=== PATIENT | female | born 1945 | race Caucasian/White ===

== ENCOUNTER 2016-11-26 19:41 | Inpatient (IN) | payer MEDICARE, OTHER ==
--- NOTE | ~2016-11-26 | DS ---
Unit #: [id number] #: [id number] Patient: RODNEY LUEVANO [id number] [address] [address] [id number] MR#: [id number] NAME: RODNEY LUEVANO. ROOM: 218 Age: 71 Sex: F Admission Date: 11/26/2016 : 1945 Discharge Date: 11/28/2016 Attending Physician: Alize Bailey M.D. DISCHARGE SUMMARY PRINCIPAL DIAGNOSES 1. Sepsis secondary to Escherichia coli urinary tract infection. 2. Toxic metabolic encephalopathy secondary to number 1, now resolved. 3. Diarrhea with pending clostridium difficile, resolved after Flagyl therapy. 4. Chronic dysphagia. 5. Diabetes mellitus type 2, insulin requiring, with hyperglycemia. 6. Iron deficiency anemia. Discharge hemoglobin 10. 7. Hypertension. 8. Thrush. 9. Dementia with behavioral disturbance. 10. Schizoaffective disorder. 11. Severe protein malnutrition. 12. Morbid obesity. 13. Recent partial hemicolectomy secondary to adenocarcinoma of the colon. 14. Hypothyroidism. 15. Hyperlipidemia. 16. Chronic obstructive pulmonary disease. CONSULTANTS None. DIAGNOSTIC STUDIES IMAGING: Chest x-ray on November 26, 2016 with bibasilar atelectasis. CLINICAL HISTORY AND HOSPITAL COURSE Ms. Luevano is a 71-year-old female, a long-term senior care resident who presented to the emergency department with increasing confusion. In the emergency department she was found to have urinary tract infection. She was given antibiotics in the emergency department with some fluids, and mental status improved. She was admitted for further evaluation. The patient was started on empiric cefepime in addition to a single dose of vancomycin. Urine culture has returned with E-coli. She has no clinical signs or symptoms of pyelonephritis; thus, I suspect this represents urinary tract infection. I am going to treat with a 1-week course of Macrobid. The patient's associated delirium has resolved. The patient was also complaining of diarrhea. C. diff. has been sent, and she has been started on Flagyl. I am not going to send the patient on Flagyl unless C. diff. becomes positive. I will contact the facility if it becomes positive. Unit #: [id number] #: [id number] Patient: RODNEY LUEVANO The patient's other chronic conditions all remained at baseline. I think she can be safely discharged back to the nursing facility today. DISCHARGE CONDITION Stable. DISCHARGE STATUS Discharge back to senior care. DISCHARGE MEDICATIONS 1. Macrobid 100 mg p.o. b.i.d. for 6 days. 2. Flagyl 500 mg p.o. t.i.d. for 13 days. 3. Tylenol 500 mg p.o. q.4 hours p.r.n. pain. 4. Depakote 1,000 mg b.i.d. 5. Nystatin 5 mg p.o. q.i.d. for 6 days. 6. Claritin 10 mg daily. 7. Atorvastatin 40 mg at bedtime. 8. Questran 4-gram packet daily. 9. Abilify 10 mg daily. 10. Xanax 0.5 mg p.o. q.6 hours p.r.n. anxiety. 11. Namenda 10 mg daily. 12. Aricept 10 mg at bedtime. 13. Lasix 40 mg every other day. 14. NovoLog 22 units with breakfast, 29 units with lunch and 29 units with dinner. 15. Levemir 40 units subcutaneously b.i.d. 16. Ferrous sulfate 325 mg b.i.d. 17. [place] 5/325 mg 2 tablets q.4 hours p.r.n. pain. 18. Pantoprazole 40 mg daily. 19. Potassium chloride 20 mEq p.o. every other day with Lasix dosing. 20. Levothyroxine 225 mcg p.o. daily. 21. Vitamin C 250 mg daily. DISCHARGE INSTRUCTIONS Patient was instructed to follow a constant carb, heart healthy diet. She will continue Accu-Cheks a.c. and h.s. at the nursing facility. She can increase her activity as tolerated. She would benefit from sleep apnea study, as well. FOLLOW-UP 1. Patient will follow up with medical billing assistant at facility upon return. 2. Again, I will contact the nursing facility if the patient is C. diff. positive. Dictated by... Alize Bailey M.D. SEJAL/lala TD: 11/28/2016 11:17 JOB #: [id number] Unit #: [id number] #: [id number] Patient: RODNEY LUEVANO L DISCHARGE SUMMARY Page 1 of 1 X Alize Bailey MD X DISCHARGE SUMMARY
--- NOTE | ~2016-11-26 | HP ---
Unit #: [id number] #: [id number] Patient: RODNEY LUEVANO [id number] [address] [address] [id number] I MR#: [id number] NAME: RODNEY LUEVANO. ROOM: 85671 Age: 71 Sex: F Admission Date: 11/26/2016 : 1945 Attending Physician: Ira Richardson M.D. HISTORY AND PHYSICAL CHIEF COMPLAINT Urinary tract infection, diarrhea, toxic-metabolic encephalopathy. HISTORY This 71-year-old female with dementia, schizoaffective disorder, diabetes, hypertension, was transferred from the [facility] for altered mental status. Patient was admitted to [facility] in September for moderately differentiated adenocarcinoma of the colon for which she underwent laparoscopic hemicolectomy. Apparently at the fpc she has since developed some recent diarrhea and they were concerned about her hydration status. She also had increasing confusion. She was sent to this emergency department where she is found to have a temperature of 100.5. She was bolused with IV fluids, given Tylenol along with p.o. potassium. Labs are notable for a white blood count of 33, and significant pyuria on urinalysis. The patient has had no stool in the ER. She is confused. PAST MEDICAL HISTORY 1. Schizoaffective disorder. 2. Dementia. 3. Descending colon mass. Positive for moderately differentiated adenocarcinoma for which the patient underwent laparoscopic partial hemicolectomy 10/[address] [facility]. 4. AODM. 5. Hyperlipidemia. 6. Hypothyroidism. 7. Dysphagia. 8. COPD. 9. Essential hypertension. 10. Status post permanent pacemaker insertion, details are unknown. ALLERGIES Penicillin. USP MEDICATIONS 1. Imodium p.r.n. 2. Cholestyramine 4 g p.o. 3. Potassium 20 mEq daily. 4. Synthroid 0.225 mg daily. 5. Claritin 10 mg daily. 6. Iron 325 mg daily. 7. NovoLog. Unit #: [id number] #: [id number] Patient: RODNEY LUEVANO 8. [place] 5 mg two tablets q.6 h. p.r.n. 9. Xanax 0.5 mg q.6 h. p.r.n. 10. Vitamin C. 11. Aricept 10 mg q.h.s. 12. Lipitor 40 mg daily. 13. Depakote 1000 mg b.i.d. 14. Levemir 60 units subcu b.i.d. 15. Benadryl 25 mg p.r.n. 16. Tylenol p.r.n. 17. Abilify 10 mg daily. 18. Namenda 10 mg daily. 19. Protonix 40 mg daily. 20. Lasix 40 mg daily. FAMILY HISTORY Unobtainable, patient is confused. SOCIAL HISTORY The patient lives at a nearby fpc. She currently does not smoke or drink alcohol. REVIEW OF SYSTEMS Difficult to obtain due to confusion. PHYSICAL EXAMINATION GENERAL: A 71-year-old, moderately obese confused female. VITAL SIGNS: Temperature 100.5. Pulse 101. Respirations 16. Blood pressure 117/58. O2 saturation is 93% on 2 L of oxygen. HEENT: Eyes ASTON. Pharynx: Patient has dry mucosa membranes and possibly thrush. NECK: Supple, without adenopathy or thyromegaly. CHEST: Clear. CARDIAC: Normal S1 and S2, with a fairly loud systolic murmur heard throughout the precordium. ABDOMEN: Bowel sounds are present. Mild generalized abdominal tenderness, without rebound or guarding. EXTREMITIES: With mild edema. Pedal pulses are diminished. NEUROLOGIC EXAM: Patient is awake, alert. She is oriented to the fact that she is in the hospital and to person but not to year. Her cranial nerves are intact. She has equal strength throughout but is quite weak on exam. DIAGNOSTIC STUDIES LABORATORY: Hematocrit is 33.6, white blood count is 33, normal platelet count, 23 bands noted. SMA-12: Potassium 3, glucose 227, calcium 7.9, with an albumin of 1.8, alkaline phosphatase 112. Urinalysis positive leukocyte esterase, nitrites and protein with 100 to 200 white cells, 4+ bacteria, no squamous cells seen. IMAGING: Chest x-ray likely a left atelectasis. CARDIOVASCULAR: EKG: Sinus tachycardia, rate 101. ASSESSMENT 1. Toxic-metabolic encephalopathy. 2. Pyelonephritis. 3. Diarrhea, status post laparoscopic hemicolectomy for colon cancer September [address] [facility]. 4. Permanent pacemaker insertion. Unit #: [id number] #: [id number] Patient: RODNEY LUEVANO 5. Schizoaffective disorder. 6. Dementia. 7. Adult-onset diabetes mellitus. 8. Hypertension. 9. Possible thrush. 10. Permanent pacemaker insertion. Details are unknown. 11. Hypothyroidism. PLANS 1. IV fluids 2. Hold Lasix and potassium for now. 3. Cefepime and one dose of vancomycin pending urine cultures. 4. Empiric Flagyl pending stool cultures. If stool cultures are negative will discontinue Flagyl. 5. Deep vein thrombosis prophylaxis. 6. Nystatin swish and swallow. 7. Speech evaluation. 8. Sliding scale insulin. Decrease Levemir for now. 9. Patient is a DNR. 10. If not improving will obtain a CT scan of the abdomen, etc. Dictated by Ira Richardson M.D. AML/cf TD: 11/27/2016 00:05 JOB #: [id number] HISTORY AND PHYSICAL Page 1 of 1 X Ira Richardson MD X HISTORY AND PHYSICAL
--- NOTE | ~2016-11-26 | EKG ---
PATIENT: RODNEY LUEVANO UNIT #: [id number] Ventricular Rate: 101 BPM Atrial Rate: 101 BPM P-R Interval: 176 ms QRS Duration: 88 ms Q-T Interval: 386 ms QTC Calculation(Bezet): 500 ms P [place]: 46 degrees Calculated R [place]: 28 degrees Calculated T [place]: 58 degrees Diagnosis Line: Sinus tachycardia Diagnosis Line: Possible Left atrial enlargement Diagnosis Line: Borderline ECG Diagnosis Line: No previous ECGs available Diagnosis Line: Confirmed by KATHLEEN VILLEGAS MD ([id number]) on 11/27/2016 Diagnosis Line: 11:23:53 PM INTERPRETING MD: BAKARI RAINES
--- NOTE | ~2016-11-26 | DS ---
Unit #: [id number] #: [id number] Patient: RODNEY LUEVANO [id number] [address] [address] [id number] MR#: [id number] NAME: RODNEY LUEVANO. ROOM: 218 Age: 71 Sex: F Admission Date: 11/26/2016 : 1945 Discharge Date: 11/28/2016 Attending Physician: Alize Bailey M.D. DISCHARGE SUMMARY ADDENDUM Following the patient's discharge, her C. diff. did return positive. I contacted [facility] and spoke with her nurse, and I have ordered Flagyl 500 mg p.o. t.i.d. for 14 days. Dictated by... Marianne Pineda/lala TD: 11/29/2016 07:45 JOB #: [id number] DISCHARGE SUMMARY Page 1 of 1 X Alize Bailey MD X DISCHARGE SUMMARY
--- NOTE | ~2016-11-26 | CR72 ---
[facility] A Service of [facility] RADIOLOGY TEXT RESULTS PATIENT: RODNEY LUEVANO LOCATION: [place] [address]- : [birth year] UNIT #: [id number] AGE: [address]: Alize Bailey MD SEX: F ORDER DR: [id number] [facility] [address] [place]. [place], [place] [address] [id number] I MR#: [id number] Acc #: [id number] NAME: RODNEY LUEVANO. : 1945 SEX: F STUDY DATE/TIME: 11/26/2016 20:17 UNIT: CEDOF ROOM: 98332 STUDY DESCRIPTION: CR Chest Single View Portable Attending Physician: Ira Richardson M.D. Ordering Physician: Ed Doctor [id number] [facility] MEDICAL IMAGING REPORT This report is preliminary unless electronic signature is present EXAM Single view chest INDICATIONS Shortness of air with activity. Dehydration. Altered mental status. FINDINGS A Single portable AP view of the chest compared 07/04/2016. Heart mediastinal contours are unchanged. The left chest wall pacemaker. Minimal linear airspace opacities in the left lung base is probably atelectasis. No pleural effusion. IMPRESSION Mild linear airspace opacities in the left lower lobe probably represents atelectasis, correlate for any evidence of mild or early pneumonia. Dictated by... Zenon Rodriguez M.D. THIS IS AN ELECTRONICALLY VERIFIED REPORT Zenon Rodriguez M.D. at 11/27/2016 2:31 PM JOE/ray TD: 11/27/2016 00:48 JOB #: [id number] MEDICAL IMAGING REPORT Page 1 of 1 COPY
[2016-11-26 19:57] LABS: BASOPHIL# 0.1 X10e3 (0-0.3); BASOPHIL% 0.3 % (0-2.5); EOSINOPHIL# 0.1 X10e3 (0-0.7); EOSINOPHIL% 0.3 % (0.0-7.0); HEMATOCRIT 33.6 % (35.0-45.0); HEMOGLOBIN 10.7 gm/dL (12.0-16.0); LYMPHOCYTE# 1.9 X10e3 (1.0-3.5); LYMPHOCYTE% 5.8 % (17.0-45.0); MEAN CELL VOLUME 78.2 FL (83-96); MEAN CORPUSCULAR HGB CONC 31.9 g/dL (30-36); MEAN PLATELET VOLUME 7.5 FL (6.5-11.5); MONOCYTE# 2.3 X10e3 (0-1.0); MONOCYTE% 7.1 % (3.0-12.0); NEUTROPHIL# 28.5 X10e3 (1.5-7.1); NEUTROPHIL% 86.5 % (40-75); PLATELET COUNT 365 X10e3 (140-420); RED CELL DISTRIBUTION WIDTH 17.2 % (11.0-15.5)
[2016-11-26 19:58] LABS: DIFF IND YES
[2016-11-26 20:16] LABS: URINE APPEARANCE CLOUDY; URINE BILIRUBIN NEG (NEG); URINE BLOOD TRACE (NEG); URINE COLOR YELLOW; URINE GLUCOSE NEG (NEG); URINE KETONE TRACE (NEG); URINE LEUKOCYTE ESTERASE 3+ (NEG); URINE NITRATE POS (NEG); URINE PROTEIN 1+ (NEG); URINE SPECIFIC GRAVITY 1.016 (1.003-1.035); URINE UROBILINOGEN 0.2 MG/DL (NEG)
[2016-11-26 20:19] LABS: CULTURE INDICATED? YES; URBCS1 AUWI 0-2 /[HPF] (0-2); URINE BACTERIA AUWI 4+ (NEGATIVE); URINE SQUAMOUS EPITHELIAL CELL NONE SEEN /[HPF]; UWBCS1 AUWI 100-200 (0-5)
[2016-11-26 20:19] LABS: ANISOCYTOSIS SL; HYPOCHROMIA SL; MICROCYTOSIS SL
[2016-11-26 20:20] LABS: PLATELET ESTIMATE NORMAL (NORMAL); SPHEROCYTE SL
[2016-11-26 20:39] LABS: URINE SOURCE CATH
[2016-11-26 20:42] LABS: ALBUMIN SERUM 1.8 g/dL (3.5-5.0); BILIRUBIN, DIRECT 0.1 mg/dL (0.0-0.2); BILIRUBIN,INDIRECT 0.3 mg/dL (0.0-0.9); BILIRUBIN,TOTAL 0.4 mg/dL (0.2-2.0); BUN/CREATININE RATIO 25.71; CALCIUM SERUM 7.9 mg/dL (8.4-10.2); CREATININE SERUM 0.7 mg/dL (0.6-1.4); GLOM FILT RATE Estimated 86.6 mL/min (>60); PROTEIN TOTAL SERUM 6.1 g/dL (6.0-8.3)
[2016-11-26] MEDS ORDERED: ANTI-DIARRHEAL2 M1 PO (22:43)
[2016-11-26] MEDS ORDERED: CHOLESTYRAMINE P4 GM PO (22:44)
[2016-11-26] MEDS ORDERED: K-DUR20 ME1 PO (22:45)
[2016-11-26] MEDS ORDERED: LEVOTHYROXINE25 MC1 PO (22:45)
[2016-11-26] MEDS ORDERED: LEVOXYL200 MC1 PO (22:46)
[2016-11-26] MEDS ORDERED: CLARITIN10 M2 PO (22:46)
[2016-11-26] MEDS ORDERED: IRON325 ( 652 PO (22:47)
[2016-11-26] MEDS ORDERED: NOVOLOG FL100 UNIT/1 SUBQ ×3 (22:48→22:55)
[2016-11-26] MEDS ORDERED: NORCO1 TAB 10/3 PO (22:49)
[2016-11-26] MEDS ORDERED: XANAX0.5 M1 PO (22:52)
[2016-11-26] MEDS ORDERED: VITAMIN C250 M1 PO (22:53)
[2016-11-26] MEDS ORDERED: DONEPEZIL HCL10 MG PO (22:53)
[2016-11-26] MEDS ORDERED: ATORVASTATIN CA40 MG PO (22:55)
[2016-11-26] MEDS ORDERED: LEVEMIR100 UNITS/ SUBQ (22:56)
[2016-11-26] MEDS ORDERED: DEPAKOTE PO (22:56)
[2016-11-26] MEDS ORDERED: BANOPHEN25 M1 PO (22:57)
[2016-11-26] MEDS ORDERED: MAPAP500 M1 PO (22:58)
[2016-11-26] MEDS ORDERED: ABILIFY10 MG PO (22:58)
[2016-11-26] MEDS ORDERED: FUROSEMIDE40 MG PO (22:59)
[2016-11-26] MEDS ORDERED: PANTOPRAZOLE SO40 MG PO (22:59)
[2016-11-26] MEDS ORDERED: MEMANTINE HCL10 MG PO (22:59)
[2016-11-27 06:12] LABS: BASOPHIL# 0.1 X10e3 (0-0.3); BASOPHIL% 0.5 % (0-2.5); DIFF IND NO; EOSINOPHIL# 0.2 X10e3 (0-0.7); EOSINOPHIL% 0.7 % (0.0-7.0); HEMATOCRIT 32.2 % (35.0-45.0); LYMPHOCYTE# 1.7 X10e3 (1.0-3.5); LYMPHOCYTE% 6.1 % (17.0-45.0); MEAN CELL VOLUME 79.2 FL (83-96); MEAN CORPUSCULAR HEMOGLOBIN 24.6 PG (28-34); MEAN PLATELET VOLUME 7.3 FL (6.5-11.5); MONOCYTE# 1.8 X10e3 (0-1.0); MONOCYTE% 6.5 % (3.0-12.0); NEUTROPHIL# 24.2 X10e3 (1.5-7.1); NEUTROPHIL% 86.2 % (40-75); PLATELET COUNT 337 X10e3 (140-420); RED BLOOD COUNT 4.06 X10e (3.90-5.30); RED CELL DISTRIBUTION WIDTH 17.7 % (11.0-15.5); WHITE BLOOD COUNT 28.1 X10e3 (4.0-10.5)
[2016-11-27 06:48] LABS: BUN/CREATININE RATIO 25.71; CALCIUM SERUM 7.5 mg/dL (8.4-10.2); CREATININE SERUM 0.7 mg/dL (0.6-1.4); GLOM FILT RATE Estimated 86.6 mL/min (>60); POTASSIUM 3.8 mmol/L (3.5-5.1)
[2016-11-27 13:08] LABS: IRON SERUM 6 ug/dL (28-170); TOTAL IRON BINDING CAPACITY 172 ug/dL (269-535); TRANSFERRIN 123 mg/dL (192-382); TRANSFERRIN SATURATION 3 % (20-50)
== END 2016-11-28 14:09 | DRG 871 ==
LOC: CED 19:41 → CEDOF 23:30 → C2A 11-27 09:51
PROVIDERS: Emergency Medicine; Internal Medicine
DX: A41.51 Sepsis due to Escherichia coli [E. coli] (principal); G92 Toxic encephalopathy; E43 Unspecified severe protein-calorie malnutrition; A04.7 Enterocolitis due to Clostridium difficile; N39.0 Urinary tract infection, site not specified; E11.9 Type 2 diabetes mellitus without complications; N12 Tubulo-interstitial nephritis, not specified as acute or chronic; B96.20 Unspecified Escherichia coli [E. coli] as the cause of diseases classified elsewhere; B37.0 Candidal stomatitis; F03.90 Unspecified dementia, unspecified severity, without behavioral disturbance, psychotic disturbance, mood disturbance, and anxiety; D50.9 Iron deficiency anemia, unspecified; F25.9 Schizoaffective disorder, unspecified; E78.5 Hyperlipidemia, unspecified; E03.9 Hypothyroidism, unspecified; J44.9 Chronic obstructive pulmonary disease, unspecified; Z95.0 Presence of cardiac pacemaker; Z88.0 Allergy status to penicillin; Z85.038 Personal history of other malignant neoplasm of large intestine; Z79.4 Long term (current) use of insulin; E66.01 Morbid (severe) obesity due to excess calories; Z68.31 Body mass index [BMI] 31.0-31.9, adult
CPT/HCPCS: 36415; 51701; 71010; 80048; 80076; 80164; 81003; 82140; 82607; 82947; 83540; 83550; 83605; 85025; 87040; 87045; 87086; 87088; 87186; 87427; 87493; 87899; 92610; 93005; 96361; 96365; 99285; G8996-GN; G8997-GN; J0692; J0696; J1815; J3370